=== PATIENT | female | born 1995 | race Hispanic/Latino ===

== ENCOUNTER 2020-09-29 21:50 | Emergency (ER) | payer OTHER ==
[2020-09-29 22:15] LABS: #Monocytes 0.4 thou/uL (0.11-0.59); #Neutrophils 5.9 thou/uL (1.40-6.50); %Basophils 0.4 % (0.0-1.0); %Eosinophils 0.1 % (0.0-10.0); %Monocytes 5.3 % (0.0-10.0); %Neutrophils 80.1 % (42.0-75.0); Hemoglobin 12.7 g/dL (12.0-16.0); Mean Corpuscular HGB CONC 32.8 g/dL (32.0-36.0); Mean Corpuscular Hemoglobin 27.2 pg (27.0-31.0); Mean Corpuscular Volume 83.1 fL (78.0-98.0); Platelet Count 210 thou/uL (130-400); RBC Distribution Width 14.4 % (11.5-14.5); Red Blood Cell (RBC) Count 4.66 mill/uL (4.20-5.40); White Blood Cell (WBC) Count 7.4 thou/uL (4.8-10.8)
[2020-09-29 22:37] LABS: ALT (SGPT) 80 U/L (8-55); AST (SGOT) 75 U/L (5-34); Albumin 3.6 g/dL (3.5-5.0); Alkaline Phosphatase 124 U/L (40-110); Anion Gap 15 mmol/L (10-20); BUN (Urea Nitrogen) 5 mg/dL (7.0-18.7); Bilirubin, Total 0.5 mg/dL (0.2-1.2); Calc. Creatinine Clearance 0 mL/min (70-130); Calcium 8.9 mg/dL (7.8-10.44); Carbon Dioxide 22 mmol/L (22-29); Chloride 103 mmol/L (98-107); Glucose 167 mg/dL (70-105); Potassium 3.9 mmol/L (3.5-5.1); Protein, Total 6.6 g/dL (6.0-8.3); Sodium 136 mmol/L (136-145)
[2020-09-29 23:16] LABS: Bacteria/HPF None Seen HPF (None Seen); Bilirubin Negative (Negative); Blood, Urine Negative (Negative); Clarity Clear (Clear); Glucose, Urine (Dipstick) Normal (Negative); Ketone, Urine Negative (Negative); Leukocyte Negative Leu/uL (Negative); Nitrite Negative (Negative); Protein, Urine (Dipstick) 50 mg/dL (Neg-Trace); RBC/HPF 0-3 HPF (0-3); Specific Gravity, Urine 1.029 (1.002-1.036); Squamous Epithelial 0-3 HPF (0-3); Urobilinogen 6 mg/dL (Less than 2); WBC/HPF 0-3 HPF (0-3)
[2020-09-29] MEDS ORDERED: Acetaminophen 500 MG TAB ONE (23:19)
[2020-09-29 23:25] LABS: INR-International Normal Ratio 0.9; PTT 29.1 sec (22.9-36.1); Prothrombin Time 12.5 sec (12.0-14.7)
[2020-09-29 23:56] LABS: Actual Bicarbonate (HCO3v) 22 mEq/L (22-28); Analyzer IN Cardio ER; Base Excess -2.2 mEq/L (-2.0 to +3.0); Calcium, Ionized (venous) 1.04 mmol/L (1.16-1.32); Chloride (VBG) 105 mmol/L (98-106); Hemoglobin (Hb) 12.4 g/dL (11.7-15.5); Potassium (VBG) 3.39 mmol/L (3.70-5.30); Sodium 135.1 mmol/L (133-146); pH (venous) 7.42 (7.32-7.43)
[2020-09-30 00:14] LABS: SARS-CoV-2 NAA Rapid Test DETECTED (NotDetected)
[2020-09-30] MEDS ORDERED: Dexamethasone 4 mg/ml Vial ONE (01:47)
[2020-09-30 02:38] LABS: Lactic Acid 1.2 mmol/L (0.5-2.2)
== END 2020-09-30 02:33 | disposition short-term general hospital (02) ==
LOC: ERS 21:50
DX: O98.512 Other viral diseases complicating pregnancy, second trimester (principal); U07.1 COVID-19; O99.512 Diseases of the respiratory system complicating pregnancy, second trimester; J12.82 Pneumonia due to coronavirus disease 2019; R09.02 Hypoxemia; Z3A.24 24 weeks gestation of pregnancy
CPT/HCPCS: 0240U; 36415; 71045; 80053; 81003; 81015; 82805; 83605; 83690; 84484; 85025; 85610; 85730; 87040; 93005; 96374; J1100